=== PATIENT | male | born 1980 | race Caucasian/White ===

== ENCOUNTER 2021-03-04 08:48 | Day surgery (SDC) | payer OTHER ==
[~2021-03-04] VITALS: Ht 172.7 cm; Wt 98.7 kg
[2021-03-04] VITALS (8 sets, daily range): BP systolic 102–134; BP diastolic 67–80
--- NOTE | 2021-03-04 09:00 | NUR ---
PATIENT AMBULATORY TO ROOM WITH WSTEADY GAIT. PT IS ALERT AND ORIENTED X3. ADMISSION ASSESSMENT COMPLETED AT THIS TIME. IV ESTABLISHED BLOOD OBTAINED AND SENT TO LAB FOR REFERNECE. ORIENTED PATIENT TO ROOM. CALL LIGHT IN REACH. WILL CONTINUE TO MONITOR.
[2021-03-04 10:34] LABS: HEMATOCRIT 37.2 % (39.0-50.0); HEMOGLOBIN 12.5 g/dl (14.0-18.0); IMMATURE GRANULOCYTES 0.3 % (0.0-5.0); MEAN CELL VOLUME 78.8 fL CALC (80.0-100.0); MEAN CORPUSCULAR HGB 26.5 pG CALC (26.0-32.0); MEAN CORPUSCULAR HGB CONC 33.6 g/dL CAL (32.0-36.0); NEUT# 4.28 thou/uL (1.82-7.42); RED BLOOD COUNT 4.72 mill/uL (4.70-6.10); RED CELL DISTRI WIDTH 13.7 % (11.5-15.5)
[2021-03-04 11:58] LABS: ALBUMIN 3.8 g/dL (3.2-5.0); ALKALINE PHOSPHATASE 71 u/l (38-126); ANION GAP 9 (6-22 (CALC)); BILIRUBIN, TOTAL 0.6 mg/dL (0.0-1.4); BUN 17 mg/dL (9-20); BUN/CREATININE RATIO 27 (12-20 (CALC)); CARBON DIOXIDE 28 mmol/l (22-30); CHLORIDE 104 mmol/l (95-108); CREATININE 0.6 mg/dL (0.7-1.3); GFR > 60 ML/MIN (>=60 (CALC)); GFR FOR AFR.AMER. > 60 ML/MIN (>=60 (CALC)); SGOT/AST 27 u/l (17-59); SODIUM 137 mmol/l (137-146); TOTAL PROTEIN 6.6 g/dL (6.3-8.2)
[2021-03-04] MEDS ORDERED: CLONIDINE0.1 MG PO (14:04)
[2021-03-04] MEDS ORDERED: KLONOPIN0.5 MG PO (14:04)
[2021-03-04] MEDS ORDERED: NALTREXONE50 MG PO (14:04)
--- NOTE | 2021-03-04 16:44 | NUR ---
PT TRANSPORTED TO MED/SURG ROOM 291 IN STABLE CONDITION VIA HOSPITAL BED ACCOMPANIED BY KOJO MELENDEZ AND ;BEDSIDE REPORT RECEIVED FROM KOJO MELENDEZ;PT SLEEPING AT THIS TIME;NO S/S OF DISTRESS NOTED;RESPIRATIONS EVEN AND UNLABORED ON O2 @ 2L VIA NC,CLEAR LUNG SOUNDS;ABDOMEN SOFT ON PALPATION AND ACTIVE IN ALL 4 QUADRANTS, BRIEF IN PLACE;STRONG PEDAL PULSES;SKIN INTACT;#18G TO [facility] NOTED INFUSING LR @ 100ML/HR,SITE APPEARS HEALTHY;#22G TO RIGHT UPPER CHEST AND #18G TO RIGHT THIGH ALSO NOTED, BOTH SITES APPEAR HEALTHY;VS OBTAINED AND WNL;FALL AND ALLERGY BAND NOTED TO RIGHT ARM;ALL SAFETY PRECAUTIONS REMAIN IN PLACE WITH BED IN THE LOWEST POSITION AND BED ALARM ON FOR SAFETY;CALL LIGHT IN REACH;WILL CONTINUE TO MONITOR
--- NOTE | 2021-03-04 18:00 | NUR ---
PT SLEEPING IN SEMI FOWLERS POSITION, OCCASIONALLY RE-POSITIONING;RESPIRATIONS EVEN AND UNLABORED ON O2 @ 2L VIA NC;NO S/S OF DISTRESS NOTED;IV SITES X3 REMAIN PATENT WITH LR INFUSING WITH EASE;VS REMAIN WNL;ALL SAFETY PRECAUTIONS REMAIN IN PLACE WITH BED IN THE LOWEST POSITION AND BED ALARM ON FOR SAFETY;CALL LIGHT IN REACH;WILL CONTINUE TO MONITOR
--- NOTE | 2021-03-04 19:55 | NUR ---
PATIENT IS SUPINE IN BED, RESTING WITH EYES CLOSED. RESPIRATIONS EVEN AND UNLABORED. O2 2L VIA N/C. HR REG. IVF INFUSING ORDERED. PATIENT VERY GROGGY AND WANTS TO BE LEFT ALONE. LIGHTS DIM, QUIET, BED ALARM ACTIVATED. ASSESSMENT COMPLETED AND CHARTED. BED IN LOW POSITION. CALL LIGHT WITHIN REACH.
--- NOTE | 2021-03-04 21:20 | NUR ---
Patient woke up aggitated requesting medication for comfort. Ativan 2mg IV given at 2107 with positive effect. Currently resting with eyes closed. Respirations even and unlabored.
--- NOTE | 2021-03-05 00:30 | NUR ---
Scheduled 2300 meds given with positive effect. Resting quietly with eyes closed. Respirations even and unlabored. IVF infusing.
--- NOTE | 2021-03-05 02:34 | NUR ---
Ativan IV given for aggitation with positive efect. Bed in low position. Call light within reach. Bed alarm activated.
[2021-03-05 04:00] VITALS: BP 127/81
--- NOTE | 2021-03-05 04:36 | NUR ---
SCHEDULED MEDS GIVEN WITH SIPS OF WATER. NO ACUTE DISTRESS OBSERVED.
[2021-03-05 06:14] LABS: HEMATOCRIT 40.6 % (39.0-50.0); HEMOGLOBIN 14.1 g/dl (14.0-18.0); IMMATURE GRANULOCYTES 0.2 % (0.0-5.0); MEAN CELL VOLUME 76.9 fL CALC (80.0-100.0); MEAN CORPUSCULAR HGB 26.7 pG CALC (26.0-32.0); MEAN CORPUSCULAR HGB CONC 34.7 g/dL CAL (32.0-36.0); NEUT# 7.29 thou/uL (1.82-7.42); RED BLOOD COUNT 5.28 mill/uL (4.70-6.10); RED CELL DISTRI WIDTH 13.2 % (11.5-15.5)
[2021-03-05 06:29] LABS: ALBUMIN 4.1 g/dL (3.2-5.0); ALKALINE PHOSPHATASE 76 u/l (38-126); BUN 15 mg/dL (9-20); BUN/CREATININE RATIO 26 (12-20 (CALC)); CARBON DIOXIDE 23 mmol/l (22-30); CHLORIDE 97 mmol/l (95-108); CREATININE 0.6 mg/dL (0.7-1.3); GFR > 60 ML/MIN (>=60 (CALC)); GFR FOR AFR.AMER. > 60 ML/MIN (>=60 (CALC)); POTASSIUM 3.6 mmol/l (3.5-5.1); SGOT/AST 25 u/l (17-59); TOTAL PROTEIN 7.2 g/dL (6.3-8.2)
[2021-03-05 06:33] LABS: ANION GAP 14 (6-22 (CALC)); BILIRUBIN, TOTAL 1.2 mg/dL (0.0-1.4); SODIUM 130 mmol/l (137-146)
--- NOTE | 2021-03-05 06:47 | NUR ---
REPORT RECEIVED FROM CISCO WILKERSON. PATIENT IS SLEEPING ON HIS LEFT SIDE IN BED WITH NO DISTRESS NOTED. BED ALARM IN PLACE AND CALL LIGHT IN REACH.
--- NOTE | 2021-03-05 07:01 | NUR ---
PATIENT IS VOMITNG MILD GREEN COLOR. ELEVATED HEAD OF THE BED. SIX SIGMA BLACK TRAINER IN ROOM TO ASSIST CHANGING BLANKET. MEDICATED PATIENT WITH ZOFRAN. BED ALARM IN PLACE. DARIELA GAR TEAM NOTFIED THAT PATIENT VOMITED AND MEDICATED.
[2021-03-05 08:24] VITALS: BP 141/79
--- NOTE | 2021-03-05 08:43 | NUR ---
ASSESSMENT DONE. PATIENT IS RESTLESS AND TURNS IN BED. PATIENT IS DROWSY BUT ALERT TO SELF. RESPS EVEN AND UNLABORED. PO FLUID PROVIDED AND PATIENT TOOK SIPS. ALSO, PATIENT HAD A FEW BITES OF BANANA. PATIENT STARTED TO VOMIT GREEN COLOR FLUID IN BED AND TWO PILL NOTED THAT PATIENT VOMITED. UNABLE TO GAVE POTASSIUM PO AT THIS TIME. IT CONSULTANT IN ROOM TO CLEAN PATIENT. MEDICATED PATIENT WITH PHENERGAN PER ORDER. BED ALARM IN PLACE AND CALL LIGHT IN REACH. NOTIFIED DR. ADAMS THAT PATIENT HAD VOMITED X2 AND WAS MEDICATTED. NO NEW ORDER RECEIVED AT THIS TIME.
--- NOTE | 2021-03-05 11:00 | NUR ---
PATIENT IS SLEEPING IN BED WITH NO DISTRESS NOTED. CALL LIGHT IN REACH AND BED ALARM IN PLACE.
[2021-03-05 11:37] VITALS: BP 138/76
--- NOTE | 2021-03-05 13:40 | NUR ---
PATIENT STATED HE WANTS A WARM SHOWER. TURN ON WARM WATER FOR THE SHOWER. PATIENT HAD A BM IN THE BRE. X2 PERSON ASSISTED PATIENT TO THE SHOWER. PATIENT IS ALERT AND ORIENT X2 BUT DROWSY. PATIENT TOOK HIS SHOWER AND ASSISTED HIM TO THE RECLINER. WATER PROVIDED AND PATIENT TOOK SIPS OF WATER. PATIENT TOOK ONE BITE OF BANANA. PATIENT STATED WILL EAT MORE LATER . CALL LIGHT IN REACH.
[2021-03-05 15:31] VITALS: BP 135/73
--- NOTE | 2021-03-05 16:17 | NUR ---
Discharge instructions given. Patient verbalizes understanding of same. Discharged in stable condition via Wheelchair to Home with staff. All belongings sent with pt.
== END 2021-03-05 16:17 | disposition home or self-care (01) | DRG 897 ==
LOC: ANR 08:48 → MS2 08:58 → ANR 03-05 16:17
PROVIDERS: ATTEND Anesthesiology
DX: F11.20 Opioid dependence, uncomplicated (principal)
CPT/HCPCS: J2060; J2354; J3475